=== PATIENT | female | born 2000 | race Caucasian/White ===

== ENCOUNTER 2021-06-12 15:49 | Outpatient (CLI) | payer MEDICAID, SELFPAY ==
[2021-06-12 17:45] LABS: Estradiol 31.9 pg/mL; Follicle Stimulating Hormone 6.3 mIU/mL; Luteinizing Hormone 3.4 mIU/mL; Prolactin 20.9 ng/mL; T4 Free Direct 1.01 ng/dL (0.76-1.46); Thyroid Stim Hormone (TSH) 1.01 uIU/mL (0.358-3.74)
[2021-06-17 13:17] LABS: 17-Hydroxyprogesterone 43 ng/dL (.)
[2021-06-19 13:38] LABS: HPV Reflexed? NOT INDICATED
== END 2021-06-12 23:59 | disposition home or self-care (01) ==
LOC: WOBLAB 15:53
PROVIDERS: Visit Provider Student in an Organized Health Care Education/Training Program
DX: Z12.4 Encounter for screening for malignant neoplasm of cervix (principal); N93.9 Abnormal uterine and vaginal bleeding, unspecified
CPT/HCPCS: 36415; 82670; 83001; 83002; 83498; 84146; 84439; 84443; 88175; G0145